=== PATIENT | male | born 1945 | race Caucasian/White ===

== ENCOUNTER 2017-04-14 10:49 | Day surgery (SDC) | payer MEDICARE ==
[~2017-04-14] VITALS: Ht 177.8 cm; Wt 88.3 kg
[2017-04-14] MEDS ORDERED: LIDOCAINE 1%, 2ML ONE (11:50)
[2017-04-14 11:58] VITALS: BP 121/66
[2017-04-14] MEDS ORDERED: METO5TAB2 PO (11:58)
[2017-04-14] MEDS ORDERED: METF500T4 PO (11:58)
[2017-04-14] MEDS ORDERED: PANT40TA5 PO (11:58)
[2017-04-14] MEDS ORDERED: INSU100V8 SQ (11:58)
[2017-04-14] MEDS ORDERED: FENTANYL PF 100 MCG/2ML ONE ×2 (12:15)
[2017-04-14] MEDS ORDERED: LACTATED RINGERS 1,000 ML IV SCH (12:15)
[2017-04-14] MEDS ORDERED: MIDAZOLAM 1 MG/ML, 2ML ONE (12:15)
[2017-04-14] MEDS ORDERED: LIDOCAINE 1%, 2ML SQ PRN (12:30)
[2017-04-14 12:34] LABS: BLOOD UREA NITROGEN 17 mg/dL (7-18)
[2017-04-14 12:38] LABS: ASPARTATE AMINO TRANSFERASE 9 U/L (15-37)
[2017-04-14] MEDS ORDERED: HYDROmorphone 1 MG/ML, 1ML IV PRN (13:00)
[2017-04-14] MEDS ORDERED: ACETAMINOPHEN 325 MG TABLET PO PRN (13:00)
[2017-04-14] MEDS ORDERED: MEPERIDINE/PF 25MG/0.5ML IVPush PRN (13:00)
[2017-04-14] MEDS ORDERED: LABETALOL 5MG/ML, 20ML IV PRN (13:00)
[2017-04-14] MEDS ORDERED: PROMETHAZINE 25 MG/ML, 1ML IV PRN (13:00)
[2017-04-14] MEDS ORDERED: ALBUTEROL SULFATE 2.5 MG/3 ML NPPB PRN (13:00)
[2017-04-14] MEDS ORDERED: hydrALAzine 20 MG/ML, 1ML IV PRN (13:00)
[2017-04-14] MEDS ORDERED: ONDANSETRON 2MG/ML, 2ML IVPush PRN (13:00)
[2017-04-14] MEDS ORDERED: FENTANYL PF 100 MCG/2ML IV PRN (13:00)
[2017-04-14] MEDS ORDERED: OXYcodone 5 MG/5 ML ORAL.SOL UDC PO PRN (13:00)
[2017-04-14] MEDS ORDERED: ROCURONIUM 10 MG/ML ONE (13:21)
[2017-04-14] MEDS ORDERED: PROPOFOL 10 MG/ML, 20ML ONE (13:21)
[2017-04-14] MEDS ORDERED: GLYCOPYRROLATE 0.2MG/1ML, 5ML ONE (13:21)
[2017-04-14] MEDS ORDERED: PHENYLEPHRINE 10 MG/ML ONE (13:21)
[2017-04-14] MEDS ORDERED: NEOSTIGMINE 1 MG/ML, 10ML ONE (13:21)
== END 2017-04-14 17:00 ==
LOC: OUT 10:49
PROVIDERS: ATTEND Internal Medicine
DX: C34.11 Malignant neoplasm of upper lobe, right bronchus or lung (principal); E11.9 Type 2 diabetes mellitus without complications; K21.9 Gastro-esophageal reflux disease without esophagitis; Z87.01 Personal history of pneumonia (recurrent); Z79.4 Long term (current) use of insulin
CPT/HCPCS: 31624; 31625; 31627; 31628; 31632; 36415; 71010; 80053; 82962; 88173; 88305; 93005; J2250; J2370; J2704; J2710; J3010; J3490

== ENCOUNTER → 2017-04-14 | Outpatient (CLI) | payer MEDICARE ==
[~2017-04-14] MED LIST: INSU100V8 SQ; METF500T4 PO; METO5TAB2 PO; PANT40TA5 PO
== END | disposition home or self-care (01) ==
LOC: CFH 09:21
PROVIDERS: ATTEND Internal Medicine
DX: R91.8 Other nonspecific abnormal finding of lung field (principal); E27.8 Other specified disorders of adrenal gland; R59.0 Localized enlarged lymph nodes; I25.10 Atherosclerotic heart disease of native coronary artery without angina pectoris; I34.8 Other nonrheumatic mitral valve disorders
CPT/HCPCS: 71250